=== PATIENT | female | born 1955 | race Hispanic/Latino ===

== ENCOUNTER → 2019-10-28 | Day surgery (SDC) | payer BC ==
[~2019-10-28] MED LIST: CARVEDILOL12.5 MG PO; DICLOFENAC SODI50 MG PO; FENTANYL CITRATE/PF 100MCG/2 ML INJ ONE; GLIMEPIRIDE2 MG PO; LEVOTHYROXINE100 MC1 IV; LEVOTHYROXINE50 MCG PO; LISINOPRIL2.5 MG PO; METFORMIN HCL500 MG PO; MIDAZOLAM HCL 2 MG/2 ML VIAL ONE; MONTELUKAST SOD10 MG PO; OR PHACO EYE KIT ONE; PREOP PHACO EYE KIT ONE; XIFAXAN550 MG PO; [UNRECOGNIZED DRUG - OTHER] PO
[2019-10-28 12:35] VITALS: BP 118/58
--- OUTSIDE RECORDS SUMMARY | 2019-10-31 13:11 | XMS REPORT ---
Author Author [facility] Address Unknown Phone Unavailable Care Team Providers Care Content Strategy Lead Name Role Phone Unavailable Unavailable Problems This patient has no known problems. Allergies, Adverse Reactions, Alerts This patient has no known allergies or adverse reactions. Medications This patient has no known medications. Encounters Start Date/Time End Date/Time Encounter Type Admission Type Attending Clinicians Care Facility Care Department Encounter ID 2019-10-23 12:44:00 2019-10-23 12:44:00 Outpatient [facility] [id number] 2019-09-16 08:52:00 2019-09-16 08:52:00 Outpatient [facility] [id number] Results Test Description Test Time Test Comments Text Results Atomic Results Result Comments SCR MAMM BILATERAL RODRIGUE CAD DIGITAL 2019-01-14 11:38:11 - SCR MAMM BILATERAL RODRIGUE CAD DIGITALBILATERAL DIGITAL SCREENING MAMMOGRAM 3D/2D WITH CAD: 01/14/2019CLINICAL: Asymptomatic. Digital breast tomosynthesis was performed in addition to routine CC and MLO views. Current mammographic images were evaluated by either a [employer] M-Vu or a [employer] ImageChecker CAD (computer aided detection system). Comparison is made to exam dated 10/19/2017 mammogram - [facility]. The tissue of both breasts is heterogeneously dense. This may lower the sensitivity of mammography. No suspicious mass, architectural distortion, malignant type calcification, or lymph node abnormality detected. Breast architecture is stable compared to prior exams.IMPRESSION: NEGATIVEThere is no mammographic evidence of malignancy. Resume annual screening mammography in one year. Marvin Argueta M.D. ss/penrad:01/14/2019 11:38:11 Business Enterprise Officer: Nidia SUERO, [facility] sent: BIRADS 1-2 Normal Mammogram BI-RADS: 1 Negative
== END | disposition home or self-care (01) ==
LOC: OR 09:00
PROVIDERS: ATTEND Ophthalmology
DX: H25.11 Age-related nuclear cataract, right eye (principal); B19.20 Unspecified viral hepatitis C without hepatic coma; K74.60 Unspecified cirrhosis of liver; Z01.810 Encounter for preprocedural cardiovascular examination; Z79.84 Long term (current) use of oral hypoglycemic drugs
CPT/HCPCS: 36415; 66984; 82948; 93005; J2250; J3010; V2632